=== PATIENT | male | born 2000 | race African-American/Black ===

== ENCOUNTER 2018-12-27 15:12 | Emergency (ER) | payer OTHER ==
[~2018-12-27] VITALS: Ht 177.8 cm; Wt 65.8 kg
[2018-12-27] MEDS ORDERED: PERIDEX 0.12%473 M1 SWISH&SPIT (15:50)
[2018-12-27] MEDS ORDERED: AMOXICILLIN 50500 MG PO (15:50)
[2018-12-27 16:03] VITALS: BP 141/76
== END 2018-12-27 16:04 | disposition home or self-care (01) ==
LOC: M.ERS 15:12
DX: K04.7 Periapical abscess without sinus (principal); F17.210 Nicotine dependence, cigarettes, uncomplicated

== ENCOUNTER 2019-01-02 15:15 | Emergency (ER) | payer OTHER ==
[~2019-01-02] VITALS: Ht 177.8 cm; Wt 63.5 kg
[~2019-01-02 15:15] MED LIST: AMOXICILLIN 50500 MG PO; PERIDEX 0.12%473 M1 SWISH&SPIT
[2019-01-02 15:50] VITALS: BP 136/62
== END 2019-01-02 15:54 | disposition home or self-care (01) ==
LOC: M.ERS 15:15
DX: K13.79 Other lesions of oral mucosa (principal)